=== PATIENT | male | born 1985 ===

== ENCOUNTER 2018-02-08 21:51 | Emergency (ER) | payer SELFPAY ==
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
[2018-02-08] MEDS ORDERED: NS(*) 0.9% 1000 ML BAG 1,000 ML IV ONE ×2 (22:07→22:45)
[2018-02-08] MEDS ORDERED: PANT40TA65 PO (22:07)
[2018-02-08] MEDS ORDERED: LEVE500T73 PO (22:07)
[2018-02-08] MEDS ORDERED: ONDANSETRON 4 MG/2 ML VIAL IVP ONE ×2 (22:10→22:45)
[2018-02-08] MEDS ORDERED: KETOROLAC 30 MG/ML VIAL IVP ONE (22:10)
[2018-02-08] MEDS ORDERED: fentaNYL CITR 100 MCG/2 ML AMP IVP ONE (22:10)
[2018-02-08] MEDS ORDERED: PROMETHAZINE 25 MG/ML 1 ML AMP IVP ONE (22:10)
[2018-02-08 22:19] LABS: PLATELET COUNT, AUTOMATED 224 K/uL (150-450)
[2018-02-08] MEDS ORDERED: ONDA4TAB PO (22:40)
[2018-02-08] MEDS ORDERED: HYDR-4309 PO (22:40)
[2018-02-08] MEDS ORDERED: ACET/HYDROC 5/325MG TH ER ONLY 2 TAB/BOTTLE PO ONE (22:40)
[2018-02-08] MEDS ORDERED: ONDANSETRON 4 MG ODT TH SL ONE (22:40)
[2018-02-08] MEDS ORDERED: HYDROmorphone* 1 MG/ML 1 MG/ML ML IVP ONE (22:45)
[2018-02-08] MEDS ORDERED: IOPAMIDOL 76% 100 ML INFUS BTL 100 ML ONE (23:36)
--- NOTE | 2018-02-09 00:14 | RADIOLOGY IMAGING REPORT ---
FACILITY: [facility] PATIENT NAME: Melo Choudhury : 1985 MR: [id number] V: [id number] EXAM DATE: ORDERING PHYSICIAN: MARIE JEREZ TECHNOLOGIST: Location: [facility] Patient: Melo Choudhury : 1985 Visit/Account:[id number] Date of Sevice: 02/08/2018 ABDOMEN/PELVIS WITH CONTRAST Additional pertinent History: Right lower quadrant pain x3 days nausea TECHNIQUE: Spiral scan was through the abdomen and pelvis during injection of nonionic iodinated in travenous contrast. Contrast: 85 mL of IV Isovue-370. COMPARISON STUDIES: Status post cholecystectomy. One of the following dose optimization techniques was utilized in the performance of this exam: Autom ated exposure control; adjustment of the mA and/or kV according to the patient's size; or use of an i terative reconstruction technique. Specific details can be referenced in the facility's radiology C T exam operational policy. FINDINGS: Liver / biliary: No normal liver lesion. Status post cholecystectomy Pancreas: negative Spleen: negative Adrenal glands: negative Kidneys / retroperitoneum: There are 2 nonobstructing cortical or corticomedullary stones in the righ t kidney largest in the inferior pole within the medullary portion the kidney measuring 6 mm. The sec ond subcapsular stone in the medial posterior aspect of the mid right kidney (image 56 series 2) nadiya uring 3.5 mm in size. A similar cortically based 3 mm stone is seen in the superior lateral aspect of the left kidney (image 57 series 2) Pelvic structures: Prostate is mildly enlarged measuring 4.8 x 3.8 cm. No colonic mass lesion or i nflammation. The bladder is somewhat decompressed with a fairly uniform symmetric wall thickening not ed throughout the bladder.. Bowel / peritoneum / mesenteries: No colonic mass lesion or inflammation. Patient is status post appe ndectomy. There is a large food laden stomach with no obvious gastritis changes. No obvious gastric g astric outlet obstructive change. Vessels: negative Musculoskeletal / Body wall: negative Specifically Lymph node assessment: negative Lower chest: negative IMPRESSION: 1. Negative CT scan of the abdomen/pelvis for acute pathology. Specifically, appendicitis or colitis changes. 2. Generalized uniform thickening of the bladder. 3. Bilateral renal stones with no renal obstructive uropathy change. No pyelonephritis. Report Dictated By: Bryce Dos Santos MD at 02/09/2018 12:01 AM Report E-Signed By: Bryce Dos Santos MD at 02/09/2018 12:10 AM WSN:[id number]
[2018-02-09] MEDS ORDERED: HYDROmorphone* 1 MG/ML 1 MG/ML ML IVP ONE (00:25)
[2018-02-09 00:30] VITALS: BP 104/54
[2018-02-09] MEDS ORDERED: ONDA4TAB PO (10:44)
== END 2018-02-09 01:15 | disposition home or self-care (01) ==
LOC: ER 22:00
DX: K52.9 Noninfective gastroenteritis and colitis, unspecified (principal)
CPT/HCPCS: 74177; 81001; 82150; 83690; 85025; 96361; 96374; 96375; 96376; 99284; J1170; J2405; J2550; J3010; J7030; Q9967; S0119; 82040; 82247; 82310; 82374; 82435; 82565; 82947; 84075; 84132; 84155; 84295; 84450; 84460; 84520

== ENCOUNTER 2018-02-09 04:09 | Inpatient (IN) | payer SELFPAY ==
[~2018-02-09] VITALS: Ht 175.3 cm; Wt 108.9 kg
[~2018-02-09 04:09] MED LIST: HYDR-4309 PO; LEVE500T73 PO; ONDA4TAB PO; PANT40TA65 PO
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
[2018-02-09 05:07] LABS: PLATELET COUNT, AUTOMATED 188 K/uL (150-450)
[2018-02-09] MEDS ORDERED: ACETAMINOPHEN 325 MG TAB PO PRN (10:00)
[2018-02-09] MEDS ORDERED: MAG HYD/AL HYD/SIMETH 30ML UDC PO PRN (10:00)
[2018-02-09 10:18] VITALS: BP 122/62
[2018-02-09] MEDS ORDERED: ONDA4TAB PO (10:44)
[2018-02-09] MEDS: NICOTINE 21 MG/24 HR PATCH TD SCH (13:19)
[2018-02-09 18:05] VITALS: BP 111/79
[2018-02-09] MEDS ORDERED: QUEtiapine FUM 100 MG TAB PO PRN (19:25)
[2018-02-09] MEDS: levETIRAcetam 500 MG TAB PO SCH (20:31)
[2018-02-09] MEDS ORDERED: QUEtiapine FUM 100 MG TAB PO SCH (21:00)
[2018-02-09] MEDS ORDERED: QUEtiapine FUM 100 MG TAB PO ONE (22:35)
[2018-02-10] MEDS: levETIRAcetam 500 MG TAB PO SCH ×2 (08:36→21:20)
[2018-02-10] MEDS: MULTIVITAMINS PO SCH (08:37)
[2018-02-10] MEDS: NICOTINE 21 MG/24 HR PATCH TD SCH (09:00)
[2018-02-10] MEDS ORDERED: VENLAFAXINE XR 37.5 MG CAPCR PO ONE (10:00)
[2018-02-10] MEDS: SERTRALINE HCL 50 MG TAB PO SCH (11:33)
[2018-02-10] MEDS: QUEtiapine FUM 25 MG TAB PO SCH (11:34)
[2018-02-10 11:35] VITALS: BP 112/68
--- NOTE | 2018-02-10 15:15 | BHS Progress Note ---
[facility] - Subjective Progress Notes Subjective Pt seen in treatment team meeting. Pt says "I just need to get back on my meds. " He indicates he has been living in [facility] most recently with a girlfriend he met on line. She had a miscarriage; later, they broke up. He says he has been not taking his zoloft 200 mg q am, effexor XR 150 mg q am, and his seroquel 100 mg q am and 300 mg q HS for several months now. Reports VH of a shadowy figure, a large woman whom he says he believes is his mother. AH of "noises, sometimes voices." Still reporting SI about 6/10 in intensity, but denies any intent or plan to harm self while in hospital-- however does not feel safe outside of hospital setting. He did get 100 mg of seroquel last night , followed by an additional 100mg, after which he slept well. Denies oversedation today. Says he has had very little sleep in last 10 days-- he has been on the road, says he has been sleeping with strangers "just to stay warm." We will restart his psychiatric medications at low doses, and then titrate accordingly. Continue suicide precautions. Suicidal Ideation: Ongoing Homicidal Ideation: None [facility] - Objective Physical Exam Vital Signs Vital Signs 02/09/18 02/10/18 18:05 11:35 Temp 98.4 Pulse 77 Resp 28 B/P (MAP) 112/68 (83) Pulse Ox 94 O2 Delivery Room Air Muscle Strength and Tone: WNL Gait and Station: Steady [facility] Medications Reviewed: Side Effects, Benefits of Medication, Risks Allergies Reviewed: Yes Mental Status Exam General Appearance: Cooperative, Unkept, Bizarre Mannerisms (seems odd. minimal eye contact.) Speech: Normal Rate, Delayed, Other (robotic tone) Mood: Dysthmic/Depressed Affect: Sad, Anxious Thought Process: Other (circumstantial to tangential) Thought Content: Suicidal Ideation, No Homicidal Ideation, No Delusions, Auditory Halllucinations, Visual Hallucinations, No Thought Broadcasting, No Ideas of Reference, No Obsessions, No Compulsions, No Other Sensorium: Clear Cognition: Alert & Oriented-Person, Alert & Oriented-Place, Alert-Oriented- Situation Memory: Immediate, Recent, Remote, Other (changes his story and is vague on details) Intelligence: Average Insight Judgment: Poor Result Diagram: 02/09/18 0504 02/09/18 0504 [facility] Assessment and Plan [id number] Encounter Date: Feb 10, 2018 [id number] Encounter Time: 09:10 [facility] Plan: Admit to Unit, Necessary Precautions, Individual/Group Therapy, Admin /Titrate Meds, Educate Patient Tobacco Medications: Started Multpiple Antipsychotics Used: No Problems: (1) Autism spectrum disorder requiring substantial support (level 2) (2) Persistent depressive disorder with anxious distress, currently severe (3) Suicidal ideation (4) Homelessness VÍCTOR FARMER MD Feb 10, 2018 15:15
[2018-02-10 19:47] VITALS: BP 121/82
[2018-02-10] MEDS ORDERED: QUEtiapine FUM 100 MG TAB PO SCH ×2 (21:00)
[2018-02-11 05:20] VITALS: BP 116/75
[2018-02-11] MEDS: QUEtiapine FUM 25 MG TAB PO SCH (08:29)
[2018-02-11] MEDS: levETIRAcetam 500 MG TAB PO SCH ×2 (08:29→21:33)
[2018-02-11] MEDS: SERTRALINE HCL 50 MG TAB PO SCH (08:29)
[2018-02-11] MEDS: MULTIVITAMINS PO SCH (08:31)
[2018-02-11] MEDS: NICOTINE 21 MG/24 HR PATCH TD SCH (09:00)
[2018-02-11] MEDS ORDERED: VENLAFAXINE XR 75 MG CAPCR PO ONE (09:00)
[2018-02-11] MEDS ORDERED: LOPERAMIDE HCL 2 MG CAP PO PRN (14:50)
[2018-02-11] MEDS ORDERED: LOPERAMIDE HCL 2 MG CAP PO ONE (14:50)
[2018-02-11] MEDS ORDERED: QUEtiapine FUM 25 MG TAB PO ONE (15:15)
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
[2018-02-11 16:36] VITALS: BP 126/67
--- NOTE | 2018-02-11 16:55 | BHS Progress Note ---
S - Subjective Progress Notes Subjective Pt seen with staff in conference room. He slept well. Reports continued suicidal ideation but no plan nor intent to harm self while on the unit, but does threaten to harm self if not in the safety of hospital environment, either by throwing self in front of a truck [place] [address], or by hanging self from a tree, which he again tells us he tried recently in [place]. He has been difficult for staff to work with-- he is rigid, demanding, guarded, accuses staff of treating him differently than other patients. Refused this morning to watch an educational video for a long time, he eventually did after we held our ground that he is in the hospital to get help, and working on his treatment is expected. Later in afternoon he escalated, yelling, demanding a prn or seroquel for "the hallucinations." capacity planning analyst was present as several staff talked to him at length including the Optical Designer, he referred to me with curse words because I had initially asked him to use coping skills instead of medication. We met as a team and chose to offer seroquel 50 mg and make it clear that this would be given in addition to him working on treatment and not isolating to his room. He did cooperate with this plan. Will continue to titrate his medications to previous out-patient levels, will increase seroquel to 100 mg q am and 300 mg q HS, will increase effexor and zoloft as well. Continue to pursue safe discharge, if he stabilizes psychiatrically, may need to look at homeless correction until his check is available on the . Suicidal Ideation: Ongoing Homicidal Ideation: None S - Objective Physical Exam Vital Signs Vital Signs 02/11/18 02/11/18 05:20 16:36 Temp 98.1 Pulse 96 Resp 16 B/P (MAP) 126/67 (86) Pulse Ox 95 O2 Delivery Room Air Muscle Strength and Tone: WNL Gait and Station: Steady [facility] Medications Reviewed: Side Effects, Benefits of Medication, Risks Allergies Reviewed: Yes Mental Status Exam General Appearance: Unkept, Psychomotor Agitation (yelling and agitated), Bizarre Mannerisms (seems odd. minimal eye contact.) Speech: Normal Rate, Delayed, Other (robotic tone) Mood: Dysthmic/Depressed, Other Affect: Sad, Anxious, Agitated, Other (angry, demanding, defensive) Thought Process: Other (circumstantial to tangential) Thought Content: Suicidal Ideation, No Homicidal Ideation, No Delusions, Auditory Halllucinations, Visual Hallucinations, No Thought Broadcasting, No Ideas of Reference, No Obsessions, No Compulsions, No Other Sensorium: Clear Cognition: Alert & Oriented-Person, Alert & Oriented-Place, Alert-Oriented- Situation Memory: Immediate, Recent, Remote, Other (changes his story and is vague on details) Intelligence: Average Insight Judgment: Poor Result Diagram: 02/09/18 0504 02/09/18 0504 [facility] Assessment and Plan [id number] Encounter Date: Feb 11, 2018 [id number] Encounter Time: 09:00 [facility] Plan: Admit to Unit, Necessary Precautions, Individual/Group Therapy, Admin /Titrate Meds, Educate Patient Tobacco Medications: Started Multpiple Antipsychotics Used: No Problems: (1) Autism spectrum disorder requiring substantial support (level 2) (2) Persistent depressive disorder with anxious distress, currently severe (3) Suicidal ideation (4) Homelessness (5) Malingering VÍCTOR FARMER MD Feb 11, 2018 16:54
[2018-02-11] MEDS ORDERED: QUEtiapine FUM 100 MG TAB PO SCH (21:00)
[2018-02-12] MEDS ORDERED: levETIRAcetam 500 MG TAB PO SCH
[2018-02-12] MEDS: levETIRAcetam 500 MG TAB PO SCH (08:15)
[2018-02-12] MEDS: MULTIVITAMINS PO SCH (08:16)
[2018-02-12] MEDS: NICOTINE 21 MG/24 HR PATCH TD SCH ×2 (08:16→09:00)
[2018-02-12 08:50] VITALS: BP 109/52
[2018-02-12] MEDS ORDERED: VENLAFAXINE XR 75 MG CAPCR PO SCH ×2 (09:00)
[2018-02-12] MEDS ORDERED: SERTRALINE HCL 50 MG TAB PO SCH ×2 (09:00)
[2018-02-12] MEDS ORDERED: QUEtiapine FUM 100 MG TAB PO SCH ×3 (09:00)
[2018-02-12] MEDS ORDERED: VENL150C61 PO (13:05)
[2018-02-12] MEDS ORDERED: QUET100T29 PO (13:06)
[2018-02-12] MEDS ORDERED: QUET300T18 PO (13:07)
[2018-02-12] MEDS ORDERED: MULT-1379 PO (13:07)
[2018-02-12] MEDS ORDERED: SERT-181 PO (13:08)
--- NOTE | 2018-02-13 18:41 | DISCHARGE SUMMARY ---
Patient was seen on February 12, 2018 at approximately 1100 hours. FINAL DIAGNOSES PER DSM-V Autism spectrum disorder level 2. Persistive depressive disorder. Malingering. Likely antisocial personality disorder. Multiple ongoing social stressors. REASON FOR ADMISSION Please see H and P and emergency room notes for full details. This is a 32-year -old male who was seen in the emergency room earlier in the evening of February 08, 2018. Patient apparently was seeking pain medications, denying any psychiatric disturbance. Patient later returned claiming suicidal thoughts. Apparently homeless and needing a place to stay. Patient was eventually brought to Behavioral Health Unit where patient was admitted. Patient noted to have had extensive psychiatric care, although also noted to be a far less than accurate historian. Patient using aliases, admitted to using aliases in previous hospital visits to obtain narcotics. Again, please refer to H and P. Patient not demonstrating any parasuicidal behaviors, but did demonstrate throughout a stay a sense of entitlement and trying to hold unit staff including this provider hostage. Patient having a limited ability and/or a limited desire to take responsibilities for his own actions and behaviors and continued to be a less than accurate historian throughout his stay. It was eventually decided that patient would be safe to go to a homeless senior living in [place] and arrangements were made for transfer. The patient accepting of this. PHYSICAL EXAMINATION GENERAL: Please see emergency room note. Notable for a 32-year-old male, less than accurate historian. Patient apparently malingering, in no acute medical distress. VITAL SIGNS: At the time of admission, temperature 99.3, pulse 95, respiratory rate 16, blood pressure 122/72 and pulse oximetry 97 on room air. At the time of discharge from Behavioral Health Unit, temperature 98.0, pulse 66, respiratory rate 16, blood pressure 109/52 and pulse oximetry 94 on room air. LABORATORY DATA CBC notable for RBCs elevated at 5.94. Hemoglobin and hematocrit low at 12.7 and 40.6 respectively. MCV and MCH low at 68.3 and 21.4 respectively. Chemistry panel unremarkable. Urinalysis notable for urobilinogen present. Toxicology screen upon admission positive for opiates the patient had been given. No serum alcohol. Hepatitis panel unremarkable. HIV negative. MENTAL STATUS EXAMINATION AT THE TIME OF DISCHARGE GENERAL APPEARANCE, BEHAVIOR AND ATTITUDE: This is a 32-year-old male with some psychomotor retardation present. Patient making partial eye contact at times. No periods of tearfulness. Minimal bizarre mannerisms noted. SPEECH: Monotone at times. . MOOD: Described as okay. AFFECT: Minimally constricted. Mood congruent. THOUGHT PROCESSES: Appear goal directed. Patient accepting of plans to go to a homeless senior living in [place] and fairly logical. No loose associations or flight of ideas. THOUGHT CONTENT: Free of auditory or visual hallucinations, ideas of reference , thought broadcastings, delusions, obsessions, compulsions. Patient now denying suicidal or homicidal ideation. SENSORIUM: Clear. COGNITION: Alert and oriented to person, place, time and situation. MEMORY: Immediate, recent and remote estimated intact. INTELLIGENCE: Average to below based on interview. INSIGHT AND JUDGMENT: Limited due to maladaptive stress coping mechanisms, maladaptive personality traits. Patient continues to be a less than accurate historian. RESULTS OF TESTING IMAGING: Abdomen and pelvis CT was done on patient's admission just prior to admission to [facility] and overall was unremarkable. LABORATORY DATA: See above. CONSULTATIONS: None. TREATMENT Patient received medications, did participate to some degree in individual and group therapy. HOSPITAL COURSE Patient overall appears to be mainly malingering at this time. Patient accusing this provider of stopping Protonix at the time of discharge. Patient was asked if he had stopped psychiatric meds on his own accord. Patient then responding yes. Patient cooperative overall, but again not effectively engaging in any care. The patient remained a less than accurate historian, demonstrating malingering and multiple traits associated with sociopathy. Again , please see H and P for full details. CONDITION OF PATIENT ON DISCHARGE Stable. Considered minimal risk to himself or others and appropriate for living in homeless senior living where patient had lived before. DISPOSITION Patient discharged to homeless senior living in [place]. Travel was arranged. He would follow up with [facility] in [place]. Hospital provided three days' worth of medications and sack lunch. Crisis line was given should symptoms return. MEDICATIONS AT THE TIME OF DISCHARGE 1. Effexor XR 150 mg daily. 2. Keppra 500 mg twice a day. 3. Seroquel 100 mg every morning. 4. Seroquel 300 mg at bedtime. 5. Multivitamin with minerals daily. 6. Patient could take Zoloft at 100 mg daily and increase every week by 50 mg and continue at 200 until seen by outpatient provider. Patient would abstain from illicit substance use and call crisis line if symptoms return. Risks, benefits and alternatives of the above discharge plan were discussed. Informed consent was given to proceed with above discharge plan by this patient. IVETT
== END 2018-02-12 13:52 | disposition home or self-care (01) | DRG 884 ==
LOC: ER 04:15 → UNDOADMIN 09:44 → BHS 09:44
PROVIDERS: ADMIT Psychiatry & Neurology Psychiatry; ATTEND Psychiatry & Neurology Psychiatry
DX: F84.0 Autistic disorder (principal); R45.851 Suicidal ideations; F34.1 Dysthymic disorder; F41.9 Anxiety disorder, unspecified; F43.10 Post-traumatic stress disorder, unspecified; G40.909 Epilepsy, unspecified, not intractable, without status epilepticus; F60.2 Antisocial personality disorder; F41.8 Other specified anxiety disorders; Z81.1 Family history of alcohol abuse and dependence; Z62.810 Personal history of physical and sexual abuse in childhood; Z59.0 Homelessness; Z76.5 Malingerer [conscious simulation]; Z91.5 Personal history of self-harm; Z88.0 Allergy status to penicillin; Z88.2 Allergy status to sulfonamides; Z88.8 Allergy status to other drugs, medicaments and biological substances; Z91.013 Allergy to seafood; Z90.49 Acquired absence of other specified parts of digestive tract
CPT/HCPCS: 36415; 80074; 80305; 80320; 80329; 82040; 82247; 82310; 82374; 82435; 82565; 82947; 83735; 84075; 84132; 84155; 84295; 84443; 84450; 84460; 84520; 85025; 86703; 99283